=== PATIENT | female | born 1960 | race Hispanic/Latino ===

== ENCOUNTER → 2022-08-11 | Outpatient (CLI) | payer MEDICARE, OTHER ==
[~2022-08-11] MED LIST: HUMALOG100 UNIT/1 SQ; LANTUS100 UNITS/ SQ; LOSARTAN POTAS100 MG PO; METFORMIN HCL500 M2 PO; OMEPRAZOLE40 MG PO
== END ==
LOC: MRI 08:17
PROVIDERS: ATTEND Specialist
DX: M75.122 Complete rotator cuff tear or rupture of left shoulder, not specified as traumatic (principal)

== ENCOUNTER → 2022-10-05 | Outpatient (RCR) | payer MEDICARE, OTHER | LOC: OT 11:03 | PROVIDERS: ATTEND Specialist | DX: M24.612 Ankylosis, left shoulder (principal) ==

== ENCOUNTER 2022-11-08 06:34 | Outpatient (RCR) | payer MEDICARE, OTHER | END 2022-12-06 | LOC: OT 06:34 | PROVIDERS: ATTEND Specialist | DX: M24.612 Ankylosis, left shoulder (principal) ==